=== PATIENT | female | born 1995 | race Caucasian/White ===

== ENCOUNTER 2018-03-28 12:00 | Emergency (ER) | payer OTHER ==
[~2018-03-28] VITALS: Ht 165.1 cm; Wt 49.1 kg
[~2018-03-28 12:00] MED LIST: CEFTIN 250250 MG/TAB PO; DRYSOL 35 ML35 ML TD; KLONOPIN 0.5MG0.5 MG; KLONOPIN 0.5MG0.5 MG PO; LEXAPRO20 MG PO
[2018-03-28] MEDS ORDERED: BUSPAR 30MG30 MG/TAB PO (12:06)
[2018-03-28] MEDS ORDERED: ABILIFY 10MG TA10 MG PO (12:06)
[2018-03-28] MEDS ORDERED: RITALIN 5MG5 MG/TAB PO (12:19)
[2018-03-28] MEDS ORDERED: CONCERTA18 MG PO (12:19)
[2018-03-28] MEDS ORDERED: INDERAL 10MG10 MG PO (12:20)
[2018-03-28] MEDS ORDERED: LAMICTAL 100MG100 MG PO (12:20)
[2018-03-28 13:16] LABS: BASO # 0.1 (0.0-0.2); EOS % 0.2 % (0-4.0); GRAN # 3.1 (1.4-6.5); GRAN % 63.1 % (42.2-75.2); LYMPH # 1.5 (1.2-3.4); LYMPH % 30.6 % (20.0-51.0); MEAN CELL VOLUME 88 fl (80.0-95.0); MEAN CORPUSCULAR HEMOGLOBIN 31 pg (26.0-32.0); MEAN CORPUSCULAR HGB CONC 36 g/dl (33.0-37.0); MONO # 0.2 (0.1-0.6); MONO % 4.9 % (1.7-9.3); PLATELET COUNT 242 K/mm3 (130-400); PROTHROMBIN TIME 11.4 SECONDS (9.7-12.8); RED BLOOD COUNT 4.17 M/mm3 (4.10-5.30); REDCELL DISTRIBUTION WIDTH-CV 11.9 % (11.5-14.5)
[2018-03-28 13:19] LABS: HEMATOCRIT 36.6 % (35.0-45.0)
[2018-03-28 13:21] LABS: ALBUMIN 4.1 gm/dL (3.5-5.0); BILIRUBIN,TOTAL 0.4 mg/dL (0.0-1.0); CALCIUM 8.9 mg/dL (8.4-10.2); CREATININE, serum 0.69 mg/dL (0.52-1.25); TOTAL PROTEIN 6.7 gm/dL (6.4-8.2)
[2018-03-28 13:39] LABS: COLLECTION METHOD CLEAN CATCH
[2018-03-28 13:55] LABS: MUCOUS Present /lpf; PH 6 (5-8); URINE APPEARANCE Clear; URINE BACTERIA None Seen /hpf; URINE BILIRUBIN Negative (NEGATIVE); URINE BLOOD Negative (NEGATIVE); URINE COLOR Yellow; URINE GLUCOSE Negative (NEGATIVE); URINE KETONE Negative (NEGATIVE); URINE LEUKOCYTE ESTERASE Negative (NEGATIVE); URINE NITRATE Negative (NEGATIVE); URINE PROTEIN(semi-quant) 1+ (NEGATIVE); URINE RBC 0-2 /hpf; URINE UROBILINOGEN >=4.0 mg/dL (NEGATIVE)
[2018-03-28 14:36] VITALS: BP 105/63; PULSE 85; TEMP 98.1
== END 2018-03-28 14:40 | disposition home or self-care (01) ==
LOC: COL.ER 12:00
PROVIDERS: Nurse Practitioner
DX: K62.89 Other specified diseases of anus and rectum (principal); F31.9 Bipolar disorder, unspecified; F41.0 Panic disorder [episodic paroxysmal anxiety]; F90.9 Attention-deficit hyperactivity disorder, unspecified type; R63.0 Anorexia; F12.90 Cannabis use, unspecified, uncomplicated; Z90.89 Acquired absence of other organs; Z87.891 Personal history of nicotine dependence
CPT/HCPCS: J2765; J7030

== ENCOUNTER 2019-06-16 21:33 | Emergency (ER) | payer BC ==
[~2019-06-16] VITALS: Ht 167.6 cm; Wt 54.5 kg
[~2019-06-16 21:33] MED LIST changes: +ABILIFY 10MG TA10 MG PO; +BUSPAR 30MG30 MG/TAB PO; +CONCERTA18 MG PO; +INDERAL 10MG10 MG PO; +LAMICTAL 100MG100 MG PO; +RITALIN 5MG5 MG/TAB PO
[2019-06-16 21:36] VITALS: TEMP 98.2
[2019-06-16 22:20] LABS: BASO # 0.1 (0.0-0.2); BASO % 0.9 % (0.0-2.0); EOS % 0.3 % (0-4.0); GRAN % 62.1 % (42.2-75.2); HEMATOCRIT 40.6 % (37.0-47.0); HEMOGLOBIN 13.6 g/dl (12.5-16.0); LYMPH # 2.1 (1.2-3.4); LYMPH % 31.7 % (20.0-51.0); MEAN CELL VOLUME 89 fl (80.0-100.0); MEAN CORPUSCULAR HEMOGLOBIN 30 pg (27.0-31.0); MEAN CORPUSCULAR HGB CONC 34 g/dl (33.0-37.0); MEAN PLATELET VOLUME 10.2 fl (7.4-10.4); MONO # 0.3 (0.1-0.6); MONO % 4.8 % (1.7-9.3); PLATELET COUNT 251 K/mm3 (130-400); RED BLOOD COUNT 4.56 M/mm3 (4.10-5.30); REDCELL DISTRIBUTION WIDTH-CV 11.5 % (11.5-14.5)
[2019-06-16 22:33] LABS: ALBUMIN 4.8 gm/dL (3.5-5.0); BILIRUBIN,TOTAL 0.2 mg/dL (0.0-1.0); CALCIUM 9.4 mg/dL (8.4-10.2); CREATININE, serum 0.7 (0.52-1.25); POTASSIUM 3.6 mmol/L (3.4-5.0); TOTAL PROTEIN 7.7 gm/dL (6.4-8.2)
[2019-06-16 23:17] VITALS: BP 114/68; PULSE 102
== END 2019-06-16 23:23 | disposition home or self-care (01) ==
LOC: COL.ER 21:33
PROVIDERS: Emergency Medicine
DX: R00.2 Palpitations (principal); F31.9 Bipolar disorder, unspecified; F17.210 Nicotine dependence, cigarettes, uncomplicated; Z90.49 Acquired absence of other specified parts of digestive tract